=== PATIENT | female | born 2000 ===

== ENCOUNTER 2023-08-16 15:20 | Outpatient (CLI) | payer OTHER | END 2023-08-16 15:21 | disposition home or self-care (01) | LOC: BICULT 15:20 | PROVIDERS: ATTEND Advanced Practice Midwife | DX: Z34.93 Encounter for supervision of normal pregnancy, unspecified, third trimester (principal); Z3A.32 32 weeks gestation of pregnancy | CPT/HCPCS: 76805 ==